=== PATIENT | female | born 1965 | race African-American/Black ===

== ENCOUNTER 2016-10-27 09:50 | Emergency (ER) | payer OTHER ==
--- NOTE | ~2016-10-27 | CR63 ---
[facility] A Service of [facility] RADIOLOGY TEXT RESULTS PATIENT: MARI ELIZABETH LOCATION: [place] : 63 UNIT #: [id number] AGE: [address]: YVONNE CUEVAS SEX: F ORDER DR: [id number] [facility] [address] [place], [place] [address] [id number] MR#: [id number] Acc #: [id number] NAME: MARI ELIZABETH : 1965 SEX: F STUDY DATE/TIME: 10/27/2016 8:31 UNIT: [facility] ROOM: STUDY DESCRIPTION: CR Chest 2 View Attending Physician: Yvonne Cuevas Aprn Ordering Physician: Ed Doc Andree Orta Primary Care Physician: Rom Bess M.D. MEDICAL IMAGING REPORT This report is preliminary unless electronic signature is present EXAM PA and lateral chest, 10/27/2016. COMPARISON 07/10/2014. HISTORY Years, cough, congestion and chest pressure for 3 days. TECHNIQUE PA and lateral views of the chest are obtained. FINDINGS Heart size in the patient remains normal. The patient has some discoid atelectasis in the left base. There is a new right basilar infiltrate. This was present to some degree in 2013 and may be at least partially chronic. CONCLUSION Discoid atelectasis left lung base. Minimal infiltrate right base, some of which may be chronic. Dictated by... Eric Bustillo M.D. THIS IS AN ELECTRONICALLY VERIFIED REPORT Eric Bustillo M.D. at 10/27/2016 5:06 PM LONNIE/russ TD: 10/27/2016 11:40 JOB #: [id number] [facility] A Service [facility] RADIOLOGY TEXT RESULTS PATIENT: MARI ELIZABETH LOCATION: [facility] : 63 UNIT #: [id number] AGE: [address]: YVONNE CUEVAS SEX: F ORDER DR: MEDICAL IMAGING REPORT COPY
[2016-10-27 08:24] LABS: INFLUENZA A NEG (NEG); INFLUENZA B NEG (NEG)
[~2016-10-27 09:50] MED LIST: AMOXICILLIN; ANTIVERT12.5 MG; ARTHROTEC 751 TAB.E2 PO; BIRTH CONTROL PILL PO; CLEOCIN PO; DARVOCET-N 1001 TA1 PO; FAMOTIDINE PO; FIORICET1 TAB; FLEXERIL PO; GARCINIA CAMBO1 EACH PO; IBUPROFEN; IBUPROFEN800 MG PO; LORTAB 5/500 TA1 TA1 PO; LORTAB 7.5-5001 TAB PO; MUCINEX DM1 TAB.SR .; MULTI VITAMIN1 EACH PO; NAPROSYN500 MG PO; NEXIUM PO; PENICILLIN; PREMPRO1 TAB PO; PRILOSEC PO; PROVERA PO; ROBAXIN500 MG PO; STOOL SOFTENER; VISTARIL; VITAMIN C; ZITHROMAX PO; ZOFRAN
== END 2016-10-27 10:06 | disposition home or self-care (01) ==
LOC: CFTX 09:50
PROVIDERS: Emergency Medicine
DX: J18.9 Pneumonia, unspecified organism (principal); Z88.1 Allergy status to other antibiotic agents; Z88.8 Allergy status to other drugs, medicaments and biological substances; Z98.890 Other specified postprocedural states
CPT/HCPCS: 36415; 71020; 87651; 87804; 87880; 99283

== ENCOUNTER 2016-10-31 06:29 | Emergency (ER) | payer OTHER ==
--- NOTE | ~2016-10-31 | CR72 ---
[facility] A Service of [facility] RADIOLOGY TEXT RESULTS PATIENT: MARI ELIZABETH LOCATION: [facility] : 63 UNIT #: [id number] AGE: [address]: Lasha Martinez MD SEX: F ORDER DR: [id number] [facility] [address] [place], [place] [address] [id number] MR#: [id number] Acc #: [id number] NAME: MARI ELIZABETH : 1965 SEX: F STUDY DATE/TIME: 10/31/2016 6:11 UNIT: [facility] ROOM: STUDY DESCRIPTION: CR Chest Single View Portable Attending Physician: Lasha Martinez M.D. Ordering Physician: Clifford Duque M.D. Primary Care Physician: Rom Bess M.D. MEDICAL IMAGING REPORT This report is preliminary unless electronic signature is present EXAM Portable chest HISTORY Chest pain, palpitations and chest pressure beginning last night. TECHNIQUE A single AP view of the chest was obtained and compared with 10/27/2016. FINDINGS Patchy infiltrates are seen in both lower lung albert predominantly linear in configuration and unchanged from the previous exam. This likely represents either atelectasis or basilar fibrosis. The upper lung albert are clear. The vascular pattern is normal. The heart and mediastinum have a normal configuration. IMPRESSION Linear infiltrates in the lower lung albert are again seen and unchanged. Atelectasis versus fibrosis. No new infiltrates are seen since the previous exam. Normal vascular markings. Dictated by... Cesar Howe M.D. THIS IS AN ELECTRONICALLY VERIFIED REPORT Cesar Howe M.D. at 10/31/2016 3:26 PM TEOF/james TD: 10/31/2016 09:49 JOB #: [id number] MEDICAL IMAGING REPORT [facility] A Service of [facility] RADIOLOGY TEXT RESULTS PATIENT: MARI ELIZABETH LOCATION: [facility] : 63 UNIT #: [id number] AGE: [address]: Lasha Martinez MD SEX: F ORDER DR: RODO
--- NOTE | ~2016-10-31 | EKG ---
PATIENT: MARI ELIZABETH UNIT #: [id number] Ventricular Rate: 81 BPM Atrial Rate: 81 BPM P-R Interval: 182 ms QRS Duration: 62 ms Q-T Interval: 384 ms QTC Calculation(Bezet): 446 ms P [place]: 66 degrees Calculated R [place]: 9 degrees Calculated T [place]: 51 degrees Diagnosis Line: Normal sinus rhythm Diagnosis Line: Left atrial enlargement Diagnosis Line: Poor R wave progression questionable lead position Diagnosis Line: or body habitus Diagnosis Line: Abnormal ECG Diagnosis Line: When compared with ECG of 27-SEP-2014 16:12, Diagnosis Line: KS interval has decreased Diagnosis Line: Confirmed by FRED ADAMS MD ([id number]) on 10/31/2016 Diagnosis Line: 4:45:30 PM INTERPRETING MD: BRYAN ANDREWS
[2016-10-31 06:07] LABS: POC - CKMB <1.0 ng/mL (0.0-7.9); POC - TROPONIN <0.05 ng/mL (<=0.05)
[2016-10-31 07:08] LABS: BASOPHIL# 0.1 X10e3 (0-0.3); BASOPHIL% 0.7 % (0-2.5); EOSINOPHIL# 0.2 X10e3 (0-0.7); EOSINOPHIL% 1.7 % (0.0-7.0); HEMATOCRIT 36.8 % (35.0-45.0); HEMOGLOBIN 12.3 gm/dL (12.0-16.0); LYMPHOCYTE% 48.8 % (17.0-45.0); MEAN CELL VOLUME 88.7 FL (83-96); MEAN CORPUSCULAR HEMOGLOBIN 29.5 PG (28-34); MEAN CORPUSCULAR HGB CONC 33.3 g/dL (30-36); MEAN PLATELET VOLUME 9.1 FL (6.5-11.5); MONOCYTE# 0.6 X10e3 (0-1.0); MONOCYTE% 5.9 % (3.0-12.0); NEUTROPHIL# 4.4 X10e3 (1.5-7.1); NEUTROPHIL% 42.9 % (40-75); PLATELET COUNT 229 X10e3 (140-420); RED BLOOD COUNT 4.15 X10e (3.90-5.30); RED CELL DISTRIBUTION WIDTH 15.1 % (11.0-15.5); WHITE BLOOD COUNT 10.2 X10e3 (4.0-10.5)
[2016-10-31 07:09] LABS: DIFF IND NO
[2016-10-31 07:20] LABS: PARTIAL THROMBOPLASTIN TIME 30.1 SECONDS (23.5-31.3); PROTHROMBIN TIME (PATIENT) 10.5 SECONDS (9.6-11.5)
[2016-10-31 07:24] LABS: POC - CKMB <1.0 ng/mL (0.0-7.9); POC - TROPONIN <0.05 ng/mL (<=0.05)
[2016-10-31 08:42] LABS: ALBUMIN SERUM 3.7 g/dL (3.5-5.0); ALKALINE PHOSPHATASE 44 U/L (32-92); ALT (SGPT) 11 U/L (10-40); AST (SGOT) 16 U/L (10-42); BILIRUBIN,TOTAL 0.3 mg/dL (0.2-2.0); BLOOD UREA NITROGEN 13 mg/dL (9-23); BUN/CREATININE RATIO 14.44; CALCIUM SERUM 8.8 mg/dL (8.4-10.2); CARBON DIOXIDE 22 mmol/L (22-31); CHLORIDE 104 mmol/L (100-111); CREATININE SERUM 0.9 mg/dL (0.6-1.4); GLOM FILT RATE Estimated ABOVE60 mL/min (>60); GLUCOSE FASTING 106 mg/dL (70-110); POTASSIUM 3.6 mmol/L (3.5-5.1); SODIUM 137 mmol/L (135-145)
[2016-10-31 08:48] LABS: BILIRUBIN, DIRECT <0.1 mg/dL (0.0-0.2); BILIRUBIN,INDIRECT 0.2 mg/dL (0.0-0.9)
== END 2016-10-31 10:56 | disposition home or self-care (01) ==
LOC: CED 06:29
PROVIDERS: Emergency Medicine
DX: R07.89 Other chest pain (principal); K21.9 Gastro-esophageal reflux disease without esophagitis; Z98.51 Tubal ligation status; Z88.6 Allergy status to analgesic agent; Z88.1 Allergy status to other antibiotic agents
CPT/HCPCS: 36415; 71010; 80048; 80076; 82553; 84484; 85025; 85610; 85730; 93005; 96374; 99284; J1885

== ENCOUNTER 2017-01-09 18:32 | Emergency (ER) | payer OTHER | END 2017-01-09 20:02 | disposition home or self-care (01) | LOC: CED 18:32 → CFTX 18:32 | DX: R23.8 Other skin changes (principal); Z79.899 Other long term (current) drug therapy; Z88.1 Allergy status to other antibiotic agents; Z88.8 Allergy status to other drugs, medicaments and biological substances | CPT/HCPCS: 99282 ==